=== PATIENT | female | born 1995 | race Hispanic/Latino ===

== ENCOUNTER 2020-04-14 07:38 | Emergency (ER) | payer OTHER ==
[~2020-04-14] VITALS: Ht 165.1 cm; Wt 60.2 kg
[2020-04-14] MEDS ORDERED: NEXP1IMP SC (07:50)
[2020-04-14 08:39] LABS: BASO % 0.5 % (0.0-1.0); EOS # 0.1 10^3/uL (0.0-0.5); EOS % 1.6 % (0.0-3.0); HEMATOCRIT 35.6 % (36.0-47.0); HEMOGLOBIN 12.2 g/dl (12.0-15.5); LYMPH # 3.3 10^3/uL (1.5-5.0); LYMPH % 52.4 % (24.0-44.0); MEAN CORPUSCULAR HEMOGLOBIN 30.1 pg (27.0-33.0); MEAN CORPUSCULAR HGB CONC 34.3 g/dl (32.0-36.5); MEAN CORPUSCULAR VOLUME 87.9 fl (80.0-96.0); MONO # 0.6 10^3/uL (0.0-0.8); MONO % 8.9 % (0.0-5.0); NEUTROPHILS # 2.3 10^3/uL (1.5-8.5); NEUTROPHILS % 36.4 % (36.0-66.0); PLATELET COUNT, AUTOMATED 226 10^3/uL (150-450); RED BLOOD COUNT 4.05 10^6/uL (4.00-5.40); WHITE BLOOD COUNT 6.2 10^3/uL (4.0-10.0)
[2020-04-14 09:11] LABS: ALBUMIN 4.2 GM/DL (3.2-5.2); BILIRUBIN,DIRECT 0.1 MG/DL (0.0-0.2); BILIRUBIN,TOTAL 0.3 MG/DL (0.2-1.0); TOTAL PROTEIN 7.2 GM/DL (6.4-8.2)
[2020-04-14 09:32] VITALS: BP 113/61
--- NOTE | 2020-04-14 10:11 | REP ---
PELVIC ULTRASOUND: Real-time sonographic evaluation of the pelvis performed. Transabdominal and endovaginal technique is utilized. The bladder is empty. The uterus measures 6.0 x 2.6 x 3.9 cm. Endometrial thickness is 4 mm. There is no endometrial fluid collection. Ovaries are normal in size and echotexture, right ovary measuring 3.1 x 1.3 x 3.6 cm and left ovary 2.6 x 1.8 x 1.9 cm. There is no adnexal mass. There is no evidence of ovarian torsion with duplex Doppler evaluation. There is trace free fluid in the pelvis, which is likely physiologic. IMPRESSION: Negative pelvic ultrasound. Electronically Signed by Yuan Joy MD 04/14/2020 12:55 P
[2020-04-14 10:26] LABS: CHLAMYDIA DNA AMPLIFICATION NEGATIVE (NEGATIVE); GC DNA AMPLIFICATION NEGATIVE (NEGATIVE)
== END 2020-04-14 09:59 | disposition home or self-care (01) ==
LOC: M ED 07:38
DX: N88.9 Noninflammatory disorder of cervix uteri, unspecified (principal); Z79.3 Long term (current) use of hormonal contraceptives

== ENCOUNTER 2021-04-18 15:27 | Emergency (ER) | payer OTHER ==
[~2021-04-18] VITALS: Ht 165.1 cm; Wt 58.8 kg
[~2021-04-18 15:27] MED LIST: NEXP1IMP SC
[2021-04-18] MEDS ORDERED: KETOROLAC 30 MG/ML 1ML VIAL IV ONE (18:45)
[2021-04-18] MEDS ORDERED: ONDANSETRON 4MG/2ML VIAL IV ONE (18:45)
[2021-04-18] MEDS ORDERED: ISOVUE-370 76% 100ML VIAL As Ordered ONE (20:39)
[2021-04-18 20:42] LABS: BASO % 0.4 % (0.0-1.0); EOS % 0.1 % (0.0-3.0); HEMATOCRIT 37.7 % (36.0-47.0); HEMOGLOBIN 12.5 g/dl (12.0-15.5); LYMPH # 1.9 10^3/uL (1.5-5.0); LYMPH % 23.6 % (24.0-44.0); MEAN CORPUSCULAR HEMOGLOBIN 29.1 pg (27.0-33.0); MEAN CORPUSCULAR HGB CONC 33.2 g/dl (32.0-36.5); MEAN CORPUSCULAR VOLUME 87.9 fl (80.0-96.0); MONO # 0.4 10^3/uL (0.0-0.8); MONO % 4.6 % (2.0-8.0); NEUTROPHILS # 5.7 10^3/uL (1.5-8.5); PLATELET COUNT, AUTOMATED 237 10^3/uL (150-450); RED BLOOD COUNT 4.29 10^6/uL (4.00-5.40)
[2021-04-18 21:07] LABS: ALBUMIN 4.2 GM/DL (3.2-5.2); ALT/SGPT 18 U/L (12-78); BILIRUBIN,DIRECT 0.2 MG/DL (0.0-0.2); BILIRUBIN,TOTAL 0.6 MG/DL (0.2-1.0); LIPASE 72 U/L (73-393); TOTAL PROTEIN 7.5 GM/DL (6.4-8.2)
[2021-04-18 21:35] LABS: BLOOD UREA NITROGEN 10 MG/DL (7-18); CALCIUM LEVEL 9.7 MG/DL (8.5-10.1); CARBON DIOXIDE LEVEL 26 MEQ/L (21-32); CHLORIDE LEVEL 106 MEQ/L (98-107); CREATININE FOR GFR 0.65 MG/DL (0.55-1.30); GLOMERULAR FILTRATION RATE > 60.0 (>60); GLUCOSE, FASTING 85 MG/DL (70-100); POTASSIUM SERUM 4.3 MEQ/L (3.5-5.1); SODIUM LEVEL 140 MEQ/L (136-145)
[2021-04-18 21:36] LABS: HCG, SERUM QUALITATIVE NEGATIVE (NEGATIVE)
--- NOTE | 2021-04-18 22:31 | REPVR ---
PROCEDURE INFORMATION: Exam: CT Abdomen And Pelvis With Contrast Exam date and time: 04/18/2021 9:52 PM Age: 25 years old Clinical indication: Abdominal pain; Periumbilical; Prior surgery; Surgery date: 6+ months; Additional info: Periumbilic pain TECHNIQUE: Imaging protocol: Computed tomography of the abdomen and pelvis with contrast. Radiation optimization: All CT scans at this facility use at least one of these dose optimization techniques: automated exposure control; mA and/or kV adjustment per patient size (includes targeted exams where dose is matched to clinical indication); or iterative reconstruction. Contrast material: ISOVUE 370; Contrast volume: 100 ml; Contrast route: INTRAVENOUS (IV); COMPARISON: US PELVIC NON-OB COMPLETE 04/14/2020 8:44 AM FINDINGS: Liver: Normal. No mass. Gallbladder and bile ducts: Status post cholecystectomy. Pancreas: Normal. No ductal dilation. Spleen: Normal. No splenomegaly. Adrenal glands: Normal. No mass. Kidneys and ureters: Normal. No hydronephrosis. Stomach and bowel: Sutures at the cecal tip consistent with prior appendectomy. Mild stool throughout much of the colon. Appendix: No evidence of appendicitis. Intraperitoneal space: Minimal free fluid in the cul-de-sac with a Hounsfield measurement of 6 which is likely physiologic. Vasculature: Unremarkable. No abdominal aortic aneurysm. Lymph nodes: Unremarkable. No enlarged lymph nodes. Urinary bladder: Unremarkable as visualized. Reproductive: Bilateral adnexal and myometrial venous varicosities, left greater than right with enlarged left gonadal vein measuring 8 mm. Bones/joints: Unremarkable. No acute fracture. Soft tissues: Unremarkable. IMPRESSION: 1. Status post cholecystectomy and appendectomy. 2. Otherwise negative CT abdomen/pelvis. Electronically signed by: Pierre Mix On 04/18/2021 22:31:15 PM
[2021-04-18] MEDS ORDERED: PANT40TA29 PO (23:36)
[2021-04-19 00:07] VITALS: BP 132/70
== END 2021-04-19 00:09 | disposition home or self-care (01) ==
LOC: M ED 15:27
DX: K21.9 Gastro-esophageal reflux disease without esophagitis (principal); Z87.442 Personal history of urinary calculi; Z79.3 Long term (current) use of hormonal contraceptives; Z79.899 Other long term (current) drug therapy
CPT/HCPCS: 74177; 80048; 80076; 81001; 83690; 84703; 85025; 96374; 96375; 99284; J1885; J2405; Q9967

== ENCOUNTER → 2021-08-12 | Outpatient (CLI) | payer OTHER ==
[~2021-08-12] MED LIST changes: +E-Z-PAQUE 96% w/w SUSP 176GM BTL As Ordered ONE; +PANT40TA29 PO
--- NOTE | 2021-08-12 16:55 | REP ---
INDICATION: CHANGE IN BOWEL HABIT-LAB 1ST. COMPARISON: None TECHNIQUE: This procedure was performed by Rose Sandoval, [facility], under the direct supervision of Dr. Delgado. Images were reviewed with Dr. Delgado prior to dictation. Liquid barium was administered and the barium column was followed through the small bowel to the level of the terminal ileum. FINDINGS: The work study student film shows no organomegaly or pathological masses. The intestinal gas pattern is unremarkable. Small bowel transit time is approximately 20 minutes. During fluoroscopy gentle palpation shows all loops are freely movable and pliable. There is no fixed angulated loops. The small bowel mucosal pattern is normal in course and caliber. There is no transition to suggest a partial small bowel obstruction. Spot filming of the terminal ileum shows it to be unremarkable. IMPRESSION: Small bowel transit time of approximately 20 minutes. 0.1 minutes of fluoroscopy time was utilized for this procedure. Some fluoroscopic images are performed with last image hold technology. These images require no additional radiation. <Electronically signed by Rose Sandoval > 08/12/21 1623 <Electronically signed by Ke Delgado > 08/12/21 1651
== END ==
LOC: M RAD 09:44
PROVIDERS: ATTEND Physician Assistant Medical
DX: R19.4 Change in bowel habit (principal)

== ENCOUNTER → 2021-09-09 | Outpatient (CLI) | payer OTHER ==
[~2021-09-09] MED LIST changes: -E-Z-PAQUE 96% w/w SUSP 176GM BTL As Ordered ONE
[2021-09-09 12:08] LABS: BASO % 0.6 % (0.0-1.0); EOS # 0.1 10^3/uL (0.0-0.5); EOS % 1.1 % (0.0-3.0); HEMATOCRIT 38.7 % (36.0-47.0); HEMOGLOBIN 12.8 g/dl (12.0-15.5); LYMPH # 3.2 10^3/uL (1.5-5.0); LYMPH % 49.8 % (24.0-44.0); MEAN CORPUSCULAR HEMOGLOBIN 29.5 pg (27.0-33.0); MEAN CORPUSCULAR HGB CONC 33.1 g/dl (32.0-36.5); MEAN CORPUSCULAR VOLUME 89.2 fl (80.0-96.0); MONO # 0.5 10^3/uL (0.0-0.8); MONO % 8.1 % (2.0-8.0); NEUTROPHILS # 2.6 10^3/uL (1.5-8.5); NEUTROPHILS % 40.2 % (36.0-66.0); PLATELET COUNT, AUTOMATED 232 10^3/uL (150-450); RED BLOOD COUNT 4.34 10^6/uL (4.00-5.40); WHITE BLOOD COUNT 6.5 10^3/uL (4.0-10.0)
[2021-09-09 12:43] LABS: ALBUMIN 4.5 GM/DL (3.2-5.2); ALT/SGPT 20 U/L (12-78); BILIRUBIN,TOTAL 0.9 MG/DL (0.2-1.0); BLOOD UREA NITROGEN 17 MG/DL (7-18); CARBON DIOXIDE LEVEL 25 MEQ/L (21-32); CHLORIDE LEVEL 104 MEQ/L (98-107); CREATININE FOR GFR 0.87 MG/DL (0.55-1.30); FREE T4 1.49 NG/DL (0.76-1.46); GLOMERULAR FILTRATION RATE > 60.0 (>60); GLUCOSE, FASTING 86 MG/DL (70-100); POTASSIUM SERUM 3.9 MEQ/L (3.5-5.1); SODIUM LEVEL 137 MEQ/L (136-145); TOTAL PROTEIN 7.6 GM/DL (6.4-8.2)
== END ==
LOC: M LAB 10:42
PROVIDERS: ATTEND Physician Assistant Medical
DX: R19.4 Change in bowel habit (principal)

== ENCOUNTER 2021-09-16 11:08 | Day surgery (SDC) | payer OTHER ==
[~2021-09-16] VITALS: Ht 165.1 cm; Wt 54.9 kg
[~2021-09-16 11:08] MED LIST changes: +NS 1,000 ML IV ONE
[2021-09-16] MEDS ORDERED: fentaNYL 100 MCG/2 ML INJECTION (J3010) As Ordered ONE (12:43)
[2021-09-16] MEDS ORDERED: LIDOCAINE 2% 100MG/5ML SDV (FOR ANES.) As Ordered ONE (12:43)
[2021-09-16] MEDS ORDERED: propofoL 200 MG/20 ML VIAL As Ordered ONE ×2 (12:43→13:36)
[2021-09-16] MEDS ORDERED: ePHEDrine SULFATE 25 MG/5 ML(5MG/ML) SYRINGE As Ordered ONE (13:37)
--- NOTE | 2021-09-16 14:09 | ROOR ---
Patient Name: Nicole Martinez Procedure Date: 09/16/2021 1:11 PM Date of : 1995 Age: 26 Room: [facility] Gender: Female Note Status: Finalized Procedure: Upper GI endoscopy Indications: Dyspepsia, Heartburn, Weight loss Providers: Ryland Feldman MD Referring MD: JAMES RAMIREZ MD Requesting Provider: Medicines: Monitored Anesthesia Care Complications: No immediate complications. Procedure: Pre-Anesthesia Assessment: - Prior to the procedure, a History and Physical was performed, and patient medications and allergies were reviewed. The patient is competent. The risks and benefits of the procedure and the sedation options and risks were discussed with the patient. All questions were answered and informed consent was obtained. Patient identification and proposed procedure were verified by the physician, the nurse and the anesthesiologist in the procedure room. Mental Status Examination: alert and oriented. Airway Examination: normal oropharyngeal airway and neck mobility. Respiratory Examination: clear to auscultation. CV Examination: normal. Prophylactic Antibiotics: The patient does not require prophylactic antibiotics. Prior Anticoagulants: The patient has taken no previous anticoagulant or antiplatelet agents. ASA Grade Assessment: II - A patient with mild systemic disease. After reviewing the risks and benefits, the patient was deemed in satisfactory condition to undergo the procedure. The anesthesia plan was to use monitored anesthesia care (MAC). Immediately prior to administration of medications, the patient was re-assessed for adequacy to receive sedatives. The heart rate, respiratory rate, oxygen saturations, blood pressure, adequacy of pulmonary ventilation, and response to care were monitored throughout the procedure. The physical status of the patient was re-assessed after the procedure. The Endoscope was introduced through the mouth, and advanced to the second part of duodenum. The upper GI endoscopy was accomplished without difficulty. The patient tolerated the procedure well. Findings: The examined esophagus was normal. The Z-line was regular and was found 40 cm from the incisors. Scattered mild inflammation characterized by congestion (edema), erythema and granularity was found in the gastric body and in the gastric antrum. Biopsies were taken with a cold forceps for Helicobacter pylori testing. Verification of patient identification for the specimen was done by the physician and nurse using the patient's name, date and medical record number. Estimated blood loss was minimal. The duodenal bulb, second portion of the duodenum and third portion of the duodenum were normal. Biopsies for histology were taken with a cold forceps for evaluation of celiac disease. Impression: - Normal esophagus. - Z-line regular, 40 cm from the incisors. - Gastritis. Biopsied. - Normal duodenal bulb, second portion of the duodenum and third portion of the duodenum. Biopsied. Recommendation: - Patient has a contact number available for emergencies. The signs and symptoms of potential delayed complications were discussed with the patient. Return to normal activities tomorrow. Written discharge instructions were provided to the patient. - High fiber diet. - Continue present medications. - Await pathology results. - Follow an antireflux regimen. - Return to GI clinic in [facility] (address: [address] [place] [address], [address] [place] [address], [place], [place],[address]) in 4 -- 6 weeks. Please call GI clinic @ [phone] for apppointment date and time. - Return to primary care physician. - Telephone GI clinic for pathology results in 2 weeks. Procedure Code(s): --- Professional --- 24687, Esophagogastroduodenoscopy, flexible, transoral; with biopsy, single or multiple Diagnosis Code(s): --- Professional --- K29.70, Gastritis, unspecified, without bleeding R10.13, Epigastric pain R12, Heartburn R63.4, Abnormal weight loss CPT copyright 2019 [employer]. All rights reserved. The codes documented in this report are preliminary and upon information coder review may be revised to meet current compliance requirements. Ryland Feldman MD Ryland Feldman MD 09/16/2021 2:09:23 PM Electronically signed by Ryland Feldman MD Number of Addenda: 0 Note Initiated On: 09/16/2021 1:11 PM Estimated Blood Loss: Estimated blood loss was minimal.
--- NOTE | 2021-09-16 14:13 | ROOR ---
Patient Name: Nicole Martinez Procedure Date: 09/16/2021 1:12 PM Date of : 1995 Age: 26 Room: [facility] Gender: Female Note Status: Finalized Procedure: Colonoscopy Indications: Chronic diarrhea, Weight loss Providers: Ryland Feldman MD Referring MD: JAMES RAMIREZ MD Requesting Provider: Medicines: Monitored Anesthesia Care Complications: No immediate complications. Procedure: Pre-Anesthesia Assessment: - Prior to the procedure, a History and Physical was performed, and patient medications and allergies were reviewed. The patient is competent. The risks and benefits of the procedure and the sedation options and risks were discussed with the patient. All questions were answered and informed consent was obtained. Patient identification and proposed procedure were verified by the physician, the nurse and the anesthesiologist in the procedure room. Mental Status Examination: alert and oriented. Airway Examination: normal oropharyngeal airway and neck mobility. Respiratory Examination: clear to auscultation. CV Examination: normal. Prophylactic Antibiotics: The patient does not require prophylactic antibiotics. Prior Anticoagulants: The patient has taken no previous anticoagulant or antiplatelet agents. ASA Grade Assessment: II - A patient with mild systemic disease. After reviewing the risks and benefits, the patient was deemed in satisfactory condition to undergo the procedure. The anesthesia plan was to use monitored anesthesia care (MAC). Immediately prior to administration of medications, the patient was re-assessed for adequacy to receive sedatives. The heart rate, respiratory rate, oxygen saturations, blood pressure, adequacy of pulmonary ventilation, and response to care were monitored throughout the procedure. The physical status of the patient was re-assessed after the procedure. The Colonoscope was introduced through the anus and advanced to the terminal ileum, with identification of the appendiceal orifice and IC valve. The colonoscopy was performed without difficulty. The patient tolerated the procedure well. The quality of the bowel preparation was good. The terminal ileum, ileocecal valve, appendiceal orifice, and rectum were photographed. Scope insertion time was 2 minutes. Scope withdrawal time was 9 minutes. The total duration of the procedure was 12 minutes. Findings: The perianal and digital rectal examinations were normal. The terminal ileum appeared normal. Normal mucosa was found in the entire colon. Biopsies for histology were taken with a cold forceps from the right colon, left colon and rectosigmoid colon for evaluation of microscopic colitis. Verification of patient identification for the specimen was done by the physician and nurse using the patient's name, date and medical record number. Estimated blood loss was minimal. Non-bleeding external and internal hemorrhoids were found during retroflexion. The hemorrhoids were medium-sized. No other significant abnormalities were identified in a careful examination of the remainder of the colon. Impression: - The examined portion of the ileum was normal. - Normal mucosa in the entire examined colon. Biopsied. - Non-bleeding external and internal hemorrhoids. Recommendation: - Patient has a contact number available for emergencies. The signs and symptoms of potential delayed complications were discussed with the patient. Return to normal activities tomorrow. Written discharge instructions were provided to the patient. - High fiber diet. - Use fiber, for example Citrucel, Fibercon, Konsyl or Metamucil. - Continue present medications. - Await pathology results. - Repeat colonoscopy at age 52 for screening purposes. - Telephone GI clinic for pathology results in 2 weeks. - Return to GI clinic in [facility] (address: [address] [place] [address], [place], [place],[facility]) in 4 -- 6 weeks. Please call GI clinic @ [phone] for apppointment date and time. Procedure Code(s): --- Professional --- 54266, Colonoscopy, flexible; with biopsy, single or multiple Diagnosis Code(s): --- Professional --- K64.8, Other hemorrhoids K52.9, Noninfective gastroenteritis and colitis, unspecified R63.4, Abnormal weight loss CPT copyright 2019 [employer]. All rights reserved. The codes documented in this report are preliminary and upon it instructor review may be revised to meet current compliance requirements. Ryland Feldman MD Ryland Feldman MD 09/16/2021 2:13:01 PM Electronically signed by Ryland Feldman MD Number of Addenda: 0 Note Initiated On: 09/16/2021 1:12 PM Estimated Blood Loss: Estimated blood loss was minimal.
[2021-09-16 14:30] VITALS: BP 103/61
== END 2021-09-16 14:34 | disposition home or self-care (01) ==
LOC: M OPP 11:08
PROVIDERS: ATTEND Internal Medicine Gastroenterology
DX: K29.70 Gastritis, unspecified, without bleeding (principal); R89.7 Abnormal histological findings in specimens from other organs, systems and tissues; R10.13 Epigastric pain; R12 Heartburn; R63.4 Abnormal weight loss; K64.8 Other hemorrhoids
CPT/HCPCS: 43239; 45380; 88305; J3010

== ENCOUNTER 2021-10-13 23:44 | Emergency (ER) | payer OTHER ==
[~2021-10-13] VITALS: Ht 165.1 cm; Wt 55.1 kg
[~2021-10-13 23:44] MED LIST changes: -NS 1,000 ML IV ONE
--- OUTSIDE RECORDS SUMMARY | 2021-10-13 23:53 | CCD | Continuity of Care Document ---
Author Author Nicole JIMENES [facility] Organization Unknown Address [address], [address] [place] [address] Phone [phone] Care Team Providers [employer] Name Role Phone Gregg Aggarwal D.O. Unavailable Problems Description No Active Problems Social History Type Date Description Comments Sex Unknown ETOH Use Rarely 2-3 times per ye ar Tobacco Use Start: Unknown Non Smoker Recreational Drug Use Regularly uses Marijuana ~ twice weekly Allergies and adverse reactions Description No Known Drug Allergies Medications Active Medications SIG Qnty Indications Ordering Provide r Date Nexplanon 68mg Implant Unknown Pantoprazole Sodium 40mg Tablets DR Daily Unknown History Medications Suprep Bowel Prep Kit 17.5-3.13-1.6GM/177ML Solution take per doctor's bowel prep instructions. 354ml Brad Encinas MD 08/01/2021 - 09/29/[address] take 4 tabs by mouth prior to procedure per instructions. 4tabs Brad Encinas MD 08/01/2021 - 09/29/2021 Immunizations Description No Information Available Vital Signs Date Vital Result Comment 09/30/2021 10:16am BP Systolic 104 mmHg BP Diastolic 62 mmHg Height 65 inches 5'5" Weight 125.00 lb BMI (Body Mass Index) 20.8 kg/m2 [place] Body Weight 125 lb Weight 56.700 kg BSA (Body Surface Area) 1.62 m2 07/13/2021 1:54pm BP Systolic 112 mmHg BP Diastolic 78 mmHg Height 65 inches 5'5" Weight 122.00 lb BMI (Body Mass Index) 20.3 kg/m2 [place] Body Weight 125 lb Weight 55.339 kg BSA (Body Surface Area) 1.60 m2 Results Test Acquired Date Facility Test Result H/L Range Note Laboratory test finding 09/16/2021 [facility] [address] [place] [address] [phone] Pathology Request For Service (SEE NOTE) 1 CBC With Differential 09/09/2021 [facility] [address] [place] [address] [phone] White Blood Count 6.5 10 Normal 4.0-10.0 Red Blood Count 4.34 10 Normal 4.00-5.40 Hemoglobin 12.8 g/dL Normal 12.0-15.5 Hematocrit 38.7 % Normal 36.0-47.0 Mean Corpuscular Volume 89.2 fl Normal 80.0-96.0 Mean Corpuscular Hemoglobin 29.5 pg Normal 27.0-33.0 Mean Corpuscular HGB Conc 33.1 g/dL Normal 32.0-36.5 Red Cell Distribution Width 12.7 % Normal 11.5-14.5 Platelet Count, Automated 232 10 Normal 150-450 Neutrophils % 40.2 % Normal 36.0-66.0 Lymph % 49.8 % High 24.0-44.0 Monroe % 8.1 % High 2.0-8.0 Eos % 1.1 % Normal 0.0-3.0 Baso % 0.6 % Normal 0.0-1.0 Immature Granulocyte % 0.2 % Normal 0-3.0 Nucleated Red Blood Cell % 0.0 % Normal 0-0 Neutrophils # 2.6 10 Normal 1.5-8.5 Lymph # 3.2 10 Normal 1.5-5.0 Monroe # 0.5 10 Normal 0.0-0.8 Eos # 0.1 10 Normal 0.0-0.5 Baso # 0.0 10 Normal 0.0-0.2 Comprehensive Metabolic Profil 09/09/2021 [facility] Lab [address] [place] [address] [phone] Glucose, Fasting 86 mg/dL Normal 70-100 Blood Urea Nitrogen 17 mg/dL Normal 7-18 Creatinine For GFR 0.87 mg/dL Normal 0.55-1.30 Glomerular Filtration Rate > 60.0 Normal >60 2 Sodium Level 137 mEq/L Normal 136-145 Potassium Serum 3.9 mEq/L Normal 3.5-5.1 Chloride Level 104 mEq/L Normal 98-107 Carbon Dioxide Level 25 mEq/L Normal 21-32 Anion Gap 8 mEq/L Normal 8-16 Calcium Level 10.0 mg/dL Normal 8.5-10.1 Ast/Sgot 15 U/L Normal 7-37 Alt/SGPT 20 U/L Normal 12-78 Alkaline Phosphatase 51 U/L Normal 45-117 Bilirubin,Total 0.9 mg/dL Normal 0.2-1.0 Total Protein 7.6 GM/DL Normal 6.4-8.2 Albumin 4.5 GM/DL Normal 3.2-5.2 Albumin/Globulin Ratio 1.5 Normal 1.2-2.2 Laboratory test finding 09/09/2021 [facility] [address] [place] [address] [phone] Tissue Transglutaminase IgA <2 U/mL Normal 0-3 3 Immunoglobulin A 134.0 mg/dL Normal 70-400 FT4&TSH Panel 09/09/2021 [facility] [address] [place] [address] [phone] Thyroid Stimulating Hormone 1.740 uIU/ML Normal 0. 358-3.740 Free T4 1.49 ng/dL High 0.76-1.46 Gastrointestinal (GI) Panel 08/12/2021 [facility] Main Lab [address] [place] [address] [phone] Gastrointestinal (GI) Panel This Gastrointes <SEE NOTE > 4, 5 Laboratory test finding 08/12/2021 [facility] [address] [place] [address] [phone] Calprotectin Stool <16 ug/g Normal 0-120 6, 7 1 FINAL DIAGNOSIS A - Small bowel, biopsy: Fragments of small intestinal mucosa with some intact villi. No typical features of celiac disease are noted. B - Gastric biopsy: Gastric mucosa with mils chronic inflammation. Rare H. pylori-like organisms are noted on routine H&E stain and to a lesser extent on immunostain, correlation with endoscopic findings is recommended. C - Colon, random biopsy: Fragments of benign colonic mucosa, without significant inflammatory changes. No evidence for microscopic colitis is noted. 09/21/2021 - 801 CLINICAL DIAGNOSIS Abdominal pain, weight loss, heartburn, change in bowel habits 09/19/2021 - 1338 GROSS DIAGNOSIS A - Received in formalin labeled "small bowel biopsy" is a 0.3 x 0.3 x 0.2 cm. aggregate of mucosal fragments. All in one. B - Received in formalin labeled "gastric biopsy" is a 0.3 x 0.2 x 0.2 cm. portion of mucosa. All in one. C - Received in formalin labeled "random colon biopsy" is a 0.8 x 0.8 x 0.2 cm. aggregate of mucosal fragments. All in one. - 09/20/2021 - 0856 Signed Carmelo Villanueva MD 09/21/2021801 2 Units are mL/min/1.73 m2 Chronic Kidney Disease Staging per NKF: Stage I & II GFR >=60 Normal to Mildly Decreased Stage III GFR 30-59 Moderately Decreased Stage IV GFR 15-29 Severely Decreased Stage V GFR <15 Very Little GFR Left ESRD GFR <15 on LABOR CUSTODIAN 3 Negative 0 - 3 Weak Positive 4 - 10 Positive >10 . Tissue Transglutaminase (tTG) has been identified as the endomysial antigen. Studies have demonstr- ated that endomysial IgA antibodies have over 99% specificity for gluten sensitive enteropathy. Performed at: [facility] [id number] [employer] Communications Operator: Vilma León MD, Phone: [phone] This Gastrointestinal PCR Pa axel detects the following bacteria, parasites and viruses: Campylobacter (jejuni, coli and upsaliensis), Clostridium difficile (toxin A/B), Plesiomonas shigelloides, Salmonella, Yersinia enterocolitica, Vibrio (parahaemolyticus, vulnificus and cholerae), Vibrio clolerae, Enteroaggregative E. coli (EAEC), Enteropathogenis E. coli (EPEC), Enterotoxigenic E. coli (ETEC) it/st, Shiga-like producing E. coli (STEC) stx1/stc2, E.coli O157, Shigella/Enteroinvasive E. coli (EIEC), Cryptosporidium, Cyclospora cayetanensis, Entamoeba histolytica, Giardia lamblia, Adenovirus F 40/41, Astrovirus, Norovirus GI/GII, Rotavirus A and Sapovirus (I, II, IV, V). One negative specimen does not rule out the possibility of a parasitic infection. NEGATIVE by MULTIPLEXED NUCLEIC ACID PCR 5 08/16/21 (SunAug 16) 12:14 P M CYNDEE JIMENES Negative. 6 Concentration Interpreta tion Follow-Up <16 - 50 ug/g Normal None >50 -120 ug/g Borderline Re-evaluate in 4-6 weeks >120 ug/g Abnormal Repeat as clinically indicated Performed at: [facility] [address] [id number] [employer] Operator: Omar Romo MD, Phone: [phone] 08/16/21 (SunAug 16) 12:14 P M CYNDEE JIMENES Normal. Procedures Date Code Description Status 07/13/2021 [address]98[address] Office/Outpatient New Moderate M DM 45-59 Minutes Completed Medical Devices Description No Information Available Encounters Type Date Location Provider Dx Diagnosis Office Visit 07/13/2021 2:00p [facility] Gastroenterology Pra ctice Cyndee Jimenes, [facility] R10.10 Upper abdominal pain, unspec ified R10.31 Right lower quadrant pain R12 Heartburn R19.4 Change in bowel habit R14.0 Abdominal distension (gaseou s) R63.4 Abnormal weight loss Assessments Date Code Description Provider 09/30/2021 B96.81 Helicobacter pylori [H. pylori] as the cause of diseases classified elsewhere Cyndee Jimenes, [facility] 09/30/2021 R10.10 Upper abdominal pain, unspecifie d Cyndee Jimenes, [facility] 09/30/2021 R19.8 Other specified symp toms and signs involving the digestive system and abdomen Cyndee Jimenes, [facility] 09/30/2021 R63.4 Abnormal weight loss Cyndee garcias, [facility] 07/13/2021 R10.10 Upper abdominal pain, unspecifie d Cyndee Jimenes, [facility] 07/13/2021 R10.31 Right lower quadrant pain Meliss malorie Jimenes, [facility] 07/13/2021 R12 Heartburn Cyndee tobias, [facility] 07/13/2021 R19.4 Change in bowel habit Cyndee Jimenes, [facility] 07/13/2021 R14.0 Abdominal distension (gaseous) Rasheeda Lee Matyjenniferbroderick, [facility] 07/13/2021 R63.4 Abnormal weight loss Cyndeejoyce Yuan trielainebroderick, [facility] Plan of Treatment 09/30/2021 - Cyndee Fentonbroderick, [facility]* B96.81 Helicobacter pylori [H. pylori] as the cause of diseases classified elsewhere * R10.10 Upper abdominal pain, unspecified * R19.8 Other specified symptoms and signs involving the digestive system and abdomen * R63.4 Abnormal weight loss * * Follow up:* Call patient in 2 weeks. Functional Status Description No Information Available Mental Status Description No Information Available Referrals Refer to Reason for Referral Status Appt Date Ryland Feldman M.D. GERD 1 NEW 04/30 TO 10/27 3 EST TO 04/30/22 Scheduled 07/14/2021 [facility] [address], [place] [address] [phone]
--- OUTSIDE RECORDS SUMMARY | 2021-10-13 23:53 | CCD | Continuity of Care Document ---
Author Author Nicole COLEY MD Organization Unknown Address [address] [place] [address] Phone [phone] Care Team Providers Care Teller Supervisor Name Role Phone Gregg Aggarwal D.O. Unavailable Problems Description No Active Problems Social History Type Date Description Comments Sex Unknown ETOH Use Rarely 2-3 times per ye ar Tobacco Use Start: Unknown Non Smoker Recreational Drug Use Regularly uses Marijuana ~ twice weekly Allergies and adverse reactions Description No Known Drug Allergies Medications Active Medications SIG Qnty Indications Ordering Provide r Date Suprep Bowel Prep Kit 17.5-3.13-1.6GM/177ML Solution take per doctor's bowel prep instructions. 354ml Brad Coley MD 08/01/[address] take 4 tabs by mouth prior to procedure per instructions. 4tabs Brad Coley MD 08/01/2021 Nexplanon 68mg Implant Unknown Pantoprazole Sodium 40mg Tablets DR Daily Unknown Immunizations Description No Information Available Vital Signs Date Vital Result Comment 07/13/2021 1:54pm BP Systolic 112 mmHg BP Diastolic 78 mmHg Height 65 inches 5'5" Weight 122.00 lb BMI (Body Mass Index) 20.3 kg/m2 [place] Body Weight 125 lb Weight 55.339 kg BSA (Body Surface Area) 1.60 m2 Results Test Acquired Date Facility Test Result H/L Range Note Gastrointestinal (GI) Panel 08/12/2021 [facility] Main [facility] [address], [place] [id number] [phone] Gastrointestinal (GI) Panel This Gastrointes <SEE NOTE > 1, 2 Laboratory test finding 08/12/2021 [facility] Main Lab [address] [place] [address] [phone] Calprotectin Stool <16 ug/g Normal 0-120 3, 4 1 This Gastrointestinal PCR Pa axel detects the [...] infection. NEGATIVE by MULTIPLEXED NUCLEIC ACID PCR 2 08/16/21 (SunAug 16) 12:14 P M CYNDEE JIMENES Negative. 3 Concentration Interpreta tion Follow-Up <16 - 50 ug/g Normal None >50 -120 ug/g Borderline Re-evaluate in 4-6 weeks >120 ug/g Abnormal Repeat as clinically indicated Performed at: [address] [id number] [employer] Project Coordinator: Omar Romo MD, Phone: [phone] 08/16/21 (SunAug 16) 12:14 P M CYNDEE JIMENES Normal. Procedures Date Code Description Status 07/13/2021 76145 Office/Outpatient New Moderate M DM 45-59 Minutes Completed Medical Devices Description No Information Available Encounters Type Date Location Provider Dx Diagnosis Office Visit 07/13/2021 2:00p [facility] [place] [facility] Cyndee Jimenes, RPA-C R10.10 Upper abdominal pain, unspec ified R10.31 Right lower quadrant pain R12 Heartburn R19.4 Change in bowel habit R14.0 Abdominal distension (gaseou s) R63.4 Abnormal weight loss Assessments Date Code Description Provider 07/13/2021 R10.10 Upper abdominal pain, unspecifie d Cyndee Lee WARNER Jimenes 07/13/2021 R10.31 Right lower quadrant pain Sander Lee MatysadiqWARNER tobias 07/13/2021 R12 Heartburn Cyndee otbiasWARNER 07/13/2021 R19.4 Change in bowel habit Cyndee Lee Juan FelaineWARNER villafana 07/13/2021 R14.0 Abdominal distension (gaseous) M fabiola Lee WARNER Jimenes 07/13/2021 R63.4 Abnormal weight loss Cyndee A WARNER Parson Plan of Treatment Future Appointment(s):* 09/15/2021 9:30 am - WARNER Harper at [facility] [place] [facility] * 08/30/2021 11:10 am - Ryland Feldman M.D. at [facility] 07/13/2021 - Cyndee Jesus WARNER Jimenes* R10.10 Upper abdominal pain, unspecified * R10.31 Right lower quadrant pain * R12 Heartburn * R19.4 Change in bowel habit * R14.0 Abdominal distension (gaseous) * R63.4 Abnormal weight loss * * New Orders:* Endoscopy, Ordered: 07/13/21 * Colonoscopy, Ordered: 07/13/21 * Comments:* Will arrange for upper endoscopy and colonoscopy. Reviewed risks and benefits of the procedures, as well as other options, with the patient. Prep for this procedure was discussed with patient, including risks and side effects associated with the prep. Patient verbalized understanding of all of the above and is in agreement to proceed. Patient will seek medical attention for any acute changes. Will monitor. * Follow up:* 2 weeks after procedures, sooner if needed. Functional Status Description No Information Available Mental Status Description No Information Available Referrals Refer to Reason for Referral Status Appt Date Ryland Feldman M.D. GERD 1 NEW 04/30 TO 10/27 3 EST TO 04/30/22 Scheduled 07/14/2021 [facility] [address] [facility], [place] [id number] [phone]
--- OUTSIDE RECORDS SUMMARY | 2021-10-13 23:54 | CCD | Continuity of Care Document ---
Author Author Nicole JIMENES Organization Unknown Address [address] [facility], [address] [place] [address] Phone [phone] Care Team Providers Care Wild Life Manager Name Role Phone Gregg Aggarwal D.O. Unavailable Problems Description No Active Problems Social History Type Date Description Comments Sex Unknown ETOH Use Rarely 2-3 times per ye ar Tobacco Use Start: Unknown Non Smoker Recreational Drug Use Regularly uses Marijuana ~ twice weekly Allergies, Adverse Reactions, Alerts Description No Known Drug Allergies Medications Active Medications SIG Qnty Indications Ordering Provide r Date Nexplanon 68mg Implant Unknown Pantoprazole Sodium 40mg Tablets DR Daily Unknown Immunizations Description No Information Available Vital Signs Date Vital Result Comment 07/13/2021 1:54pm BP Systolic 112 mmHg BP Diastolic 78 mmHg Height 65 inches 5'5" Weight 122.00 lb BMI (Body Mass Index) 20.3 kg/m2 [place] Body Weight 125 lb Weight 55.339 kg BSA (Body Surface Area) 1.60 m2 Procedures Date Code Description Status 07/13/2021 19103 Office/Outpatient New Moderate M DM 45-59 Minutes Completed Medical Devices Description No Information Available Encounters Type Date Location Provider Dx Diagnosis Office Visit 07/13/2021 2:00p [facility]astro[facility] Pra ctice WARNER Harper R10.10 Upper abdominal pain, unspec ified R10.31 Right lower quadrant pain R12 Heartburn R19.4 Change in bowel habit R14.0 Abdominal distension (gaseou s) R63.4 Abnormal weight loss Assessments Date Code Description Provider 07/13/2021 R10.10 Upper abdominal pain, unspecifie d WARNER Harper 07/13/2021 R10.31 Right lower quadrant pain Meliss a A Charlejatinder, [facility] 07/13/2021 R12 Heartburn [facility]ick[facility] 07/13/2021 R19.4 Change in bowel habit Cyndee Jimenes, [facility] 07/13/2021 R14.0 Abdominal distension (gaseous) M fabiola Lee Jamari, [facility] 07/13/2021 R63.4 Abnormal weight loss Cyndee Yuan dieter, [facility] Plan of Treatment Future Appointment(s):* 08/30/2021 11:10 am - Ryland Feldman M.D. at [facility] 07/13/2021 - Cyndee Lee WARNER Jimenes* R10.10 Upper abdominal pain, unspecified [...] to Reason for Referral Status Appt Date Rylnad Feldman M.D. GERD 1 NEW 04/30 TO 10/27 3 EST TO 04/30/22 Scheduled 07/14/2021 [facility] [address] [facility], [address] [place] [address] [phone]
--- OUTSIDE RECORDS SUMMARY | 2021-10-13 23:54 | CCD ---
Author Author [facility] Organization [facility] Address Unknown Phone Unavailable Care Team Providers Care Dental Hygiene Instructor Name Role Phone Charlebois, A Cyndee RPA C Unavailable Unavailable Charlebois, A Cyndee RPA C Unavailable Unavailable Charlebois, A Cyndee RPA C Unavailable Unavailable Charlebois, A Cyndee RPA C Unavailable Unavailable Charlebois, A Cyndee RPA C Unavailable Unavailable Charlebois, A Cyndee RPA C Unavailable Unavailable Charlebois, A Cyndee RPA C Unavailable Unavailable Charlebois, A Cyndee RPA C Unavailable Unavailable Charlebois, A Cyndee RPA C Unavailable Unavailable Charlebois, A Cyndee RPA C Unavailable Unavailable Charlebois, A Cyndee RPA C Unavailable Unavailable Charlebois, A Cyndee RPA C Unavailable Unavailable Charlebois, A Cyndee RPA C Unavailable Unavailable Charlebois, A Cyndee RPA C Unavailable Unavailable Charlebois, A Cyndee RPA C Unavailable Unavailable Charlebois, A Cyndee RPA C Unavailable Unavailable Charlebois, A Cyndee RPA C Unavailable Unavailable Charlebois, A Cyndee RPA C Unavailable Unavailable Charlebois, A Cyndee RPA C Unavailable Unavailable Charlebois, A Cyndee RPA C Unavailable Unavailable Charlebois, A Cyndee RPA C Unavailable Unavailable Charlebois, A Cyndee RPA C Unavailable Unavailable Charlebois, A Cyndee RPA C Unavailable Unavailable Charlebois, A Cyndee RPA C Unavailable Unavailable Charlebois, A Cyndee RPA C Unavailable Unavailable Charlebois, A Cyndee RPA C Unavailable Unavailable Charlebois, A Cyndee RPA C Unavailable Unavailable Charlebois, A Cyndee RPA C Unavailable Unavailable Charlebois, A Cyndee RPA C Unavailable Unavailable Charlebois, A Cyndee RPA C Unavailable Unavailable Charlebois, A Cyndee RPA C Unavailable Unavailable Charlebois, A Cyndee RPA C Unavailable Unavailable Charlebois, A Cyndee RPA C Unavailable Unavailable Manning, M Christopher PA-C Unavailable Unavailable Manning, M Christopher PA-C Unavailable Unavailable Manning, M Christopher PA-C Unavailable Unavailable Manning, M Christopher PA-C Unavailable Unavailable Manning, M Christopher PA-C Unavailable Unavailable Manning, M Christopher PA-C Unavailable Unavailable Manning, M Christopher PA-C Unavailable Unavailable Manning, M Christopher PA-C Unavailable Unavailable Manning, M Christopher PA-C Unavailable Unavailable Manning, M Christopher PA-C Unavailable Unavailable Manning, M Christopher PA-C Unavailable Unavailable Manning, M Christopher PA-C Unavailable Unavailable Manning, M Christopher PA-C Unavailable Unavailable Manning, M Christopher PA-C Unavailable Unavailable Manning, M Christopher PA-C Unavailable Unavailable Manning, M Christopher PA-C Unavailable Unavailable Manning, M Christopher PA-C Unavailable Unavailable Manning, M Christopher PA-C Unavailable Unavailable Manning, M Christopher PA-C Unavailable Unavailable Manning, M Christopher PA-C Unavailable Unavailable Manning, M Christopher PA-C Unavailable Unavailable Manning, M Christopher PA-C Unavailable Unavailable Manning, M Christopher PA-C Unavailable Unavailable Manning, M Christopher PA-C Unavailable Unavailable Manning, M Christopher PA-C Unavailable Unavailable Manning, M Christopher PA-C Unavailable Unavailable Re-disclosure Warning The records that you are about to access may contain information from federally-assisted alcohol or drug abuse programs. If such information is present, then the following federally mandated warning applies: This information has been disclosed to you from records protected by federal confidentiality rules (42 CFR part 2). The federal rules prohibit you from making any further disclosure of this information unless further disclosure is expressly permitted by the written consent of the person to whom it pertains or as otherwise permitted by 42 CFR part 2. A general authorization for the release of medical or other information is NOT sufficient for this purpose. The Federal rules restrict any use of the information to criminally investigate or prosecute any alcohol or drug abuse patient.The records that you are about to access may contain highly sensitive health information, the redisclosure of which is protected by Article 27-F of the [facility] Public Health law. If you continue you may have access to information: Regarding HIV / AIDS; Provided by facilities licensed or operated by the [facility] Office of Mental Health; or Provided by the [facility] Office for People With Developmental Disabilities. If such information is present, then the following [facility] mandated warning applies: This information has been disclosed to you from confidential records which are protected by state law. State law prohibits you from making any further disclosure of this information without the specific written consent of the person to whom it pertains, or as otherwise permitted by law. Any unauthorized further disclosure in violation of state law may result in a fine or care home sentence or both. A general authorization for the release of medical or other information is NOT sufficient authorization for further disc losure. Encounters Encounter Providers Location Date Indications Data Source(s ) Outpatient Attender: Terrence Manning PA-C 08/26/2021 03:49:38 PM EDT - 08/26/2021 05:27:03 PM EDT Mariella ([facility]) Outpatient Attender: Cyndee Wells/Mirta/Jesus pringle/Huang 07/13/2021 02:00:00 PM EDT TANNA ([facility] arjun ) Immunizations Vaccine Date Status Description Data Source(s) COVID-19 VACCINE Moderna 04/12/2021 12:00:00 AM EDT completed [facility] Vaccine Series Complete: YESThis Data wa s Submitted to [facility] Via [employer]. COVID-19 VACCINE Moderna 03/15/2021 12:00:00 AM EDT completed [facility] Vaccine Series Complete: NOThis Data was Submitted to [facility] Via [employer]. Medications Medication Brand Name Start Date Product Form Dose Route Admi nistrative Instructions Pharmacy Instructions Status Indications Reaction Description Data Source(s) Suprep Bowel Prep Kit Suprep Bowel Prep Kit 08/01/2021 12:00:00 AM EDT completed [facility] ([facility], ) Bisacodyl 5 MG Delayed Release Oral Tablet [Dulcolax] Dulcol ax 08/01/2021 12:00:00 AM EDT ORAL completed [facility] ([facility], ) Insurance Providers Payer name Policy type / Coverage type Policy ID Covered democrat ID Covered democrat's relationship to braden Policy Braden Plan Information [facility] [id number] [facility] [id number] [employer]/ [id number] [facility] [id number] [facility] [id number] [facility] [id number] Problems, Conditions, and Diagnoses No Information Surgeries/Procedures Procedure Description Date Indications Data Source(s) OFFICE OUTPATIENT NEW 45 MINUTES 07/13/2021 12:00:00 A M EDT [facility] ([facility], ) Results ID Date Data Source [id number] 09/16/2021 01:53:00 PM EDT [facility] ([facility], ) Name Value Range Interpretation Code Description Data Anastasia rce(s) Supporting Document(s) Surgical pathology study Laboratory test result [facility] ([facility], ) <content>FINAL DIAGNOSIS</content>
< content></content>
<content>A - Small bowel, biopsy:</content>
<content>Fragments of small intestinal mucosa with some intact villi.</content>
<content>No typical features of celiac disease are noted.</content>
<content>B - Gastric biopsy:</content>
<content>Gastric mucosa with mils chronic inflammation.</content>
<content>Rare H. pylori-like organisms are noted on routine H&E stain and to a</content>
<content>lesser extent on immunostain, correlation with endoscopic findings is</content>
<content>recommended.</ content>
<content></content>
<content>C - Colon, random biopsy:</content>
<content>Fragments of benign colonic mucosa, without significant inflammatory</content>
<content>changes.</content>
<content> No evidence for microscopic colitis is noted.</content>
<content></content>
<content>09/21/2021 - 801</content>
<content></content>
<content>CLINICAL DIAGNOSIS</content>
<content></content>
<content>Abdominal pain, weight loss, heartburn, change in bowel habits</content>
<content>09/19/2021 - 1337</content>
<content></content>
<content>GROSS DIAGNOSIS</content>
<content></content>
<content>A - Received in formalin labeled "small bowel biopsy" is a 0.3 x 0.3 x</content>
<content>0.2 cm. aggregate of mucosal fragments. All in one.</content>
<content></content>
<content>B - Received in formalin labeled "gastric biopsy" is a 0.3 x 0.2 x 0.2</content>
<content>cm. portion of mucosa. All in one.</content>
<content></content>
<content>C - Received in formalin labeled "random colon biopsy" is a 0.8 x 0.8 x</content>
<content>0.2 cm. aggregate of mucosal fragments. All in one.</content>
<content>-SH</content>
<content>09/20/2021 - 0856</content>
<content></content>
<content>Signed Carmelo Villanueva MD 09/21/2021801</content>
<content></content> ID Date Data Source [id number] 09/09/2021 11:15:00 AM EDT [facility] ([facility], ) Name Value Range Interpretation Code Description Data Anastasia rce(s) Supporting Document(s) Thyroid Stimulating Hormone 1.740 uIU/ML 0.358-3.740 Norm al (applies to non- numeric results) [facility] ([facility]) Free T4 1.49 ng/dL 0.76-1.46 Above high normal [facility] ([facility]) ID Date Data Source [id number] 09/09/2021 11:15:00 AM EDT [facility] ([facility]) Name Value Range Interpretation Code Description Data Anastasia rce(s) Supporting Document(s) Tissue transglutaminase IgA Ab [Units/volume] in Serum Labor atory test result 0-3 Normal (applies to non-numeric results) [facility] ([facility]) Negative 0 - 3 Weak Positive 4 - 10 Positive >10 . Tissue Transglutaminase (tTG) has been identified as the endomysial antigen. Studies have demonstr- ated that endomysial IgA antibodies have over 99% specificity for gluten sensitive enteropathy. Performed at: RN - [facility] [address] [id number] Glass Frame Fitter: Vilma León MD, Phone: [phone] IgA [Mass/volume] in Serum or Plasma 134.0 mg/dL 70-400 Normal (applies to non- numeric results) [facility] ([facility]) ID Date Data Source [id number] 09/09/2021 11:15:00 AM EDT [facility]) Name Value Range Interpretation Code Description Data Anastasia rce(s) Supporting Document(s) Glucose, Fasting 86 mg/dL 70-100 Normal (applies to non-numeric results) [facility] ([facility]) Blood Urea Nitrogen 17 mg/dL 7-18 Normal (applies to non-nume paulina results) [facility] ([facility]) Glomerular Filtration Rate Laboratory test result Normal (applies to non- numeric results) [facility]) <content>Units are mL/min/1.73 m2</content>
<content></content>
<content>Chronic Kidney Disease Staging per NKF:</content>
<content></content>
<content>Stage I & II GFR >=60 Normal to Mildly Decreased</content>
<content>Stage III GFR 30- 59 Moderately Decreased</content>
<content>Stage IV GFR 15-29 Severely Decreased</content>
<content>Stage V GFR <15 Very Little GFR Left</content>
<content>ESRD GFR <15 on DAMPENER OPERATOR</content>
<content></content> Creatinine For GFR 0.87 mg/dL 0.55-1.30 Normal (applies to non -numeric results) [facility] ([facility], ) Sodium Level 137 meq/L 136-145 Normal (applies to non-numeric res ults) [facility], ) Potassium Serum 3.9 meq/L 3.5-5.1 Normal (applies to non-numeric results) [facility] ([facility], ) Chloride Level 104 meq/L 98-107 Normal (applies to non-numeric r esults) [facility] ([facility], ) Carbon Dioxide Level 25 meq/L 21-32 Normal (applies to non-num suleman results) [facility] ([facility], ) Anion Gap 8 meq/L 8-16 Normal (applies to non-numeric resul ts) [facility], ) Calcium Level 10.0 mg/dL 8.5-10.1 Normal (applies to non-numeric re sults) [facility], ) Ast/Sgot 15 U/L 7-37 Normal (applies to non-numeric resul ts) [facility] ([facility], ) Alt/SGPT 20 U/L 12-78 Normal (applies to non-numeric resul ts) [facility], ) Alkaline Phosphatase 51 U/L 45-117 Normal (applies to non-num suleman results) [facility], ) Bilirubin,Total 0.9 mg/dL 0.2-1.0 Normal (applies to non-numeric results) [facility], ) Total Protein 7.6 GM/DL 6.4-8.2 Normal (applies to non-numeric re sults) [facility]) Albumin 4.5 GM/DL 3.2-5.2 Normal (applies to non-numeric resul ts) [facility]) Albumin/Globulin Ratio 1.5 1.2-2.2 Normal (applies to non-n umeric results) [facility]) ID Date Data Source [id number] 09/09/2021 11:15:00 AM EDT [facility] ([facility]) Name Value Range Interpretation Code Description Data Anastasia rce(s) Supporting Document(s) White Blood Count 6.5 10 4.0-10.0 Normal (applies to non-numeri c results) [facility]) Red Blood Count 4.34 10 4.00-5.40 Normal (applies to non-numeric results) [facility] ([facility]) Hemoglobin 12.8 g/dL 12.0-15.5 Normal (applies to non-numeric resul ts) [facility]) Hematocrit 38.7 % 36.0-47.0 Normal (applies to non-numeric resul ts) [facility]) Mean Corpuscular Volume 89.2 fl 80.0-96.0 Normal ( applies to non-numeric results) [facility]) Mean Corpuscular Hemoglobin 29.5 pg 27.0-33.0 Norm al (applies to non-numeric results) [facility]) Red Cell Distribution Width 12.7 % 11.5-14.5 Norm al (applies to non-numeric results) [facility]) Mean Corpuscular HGB Conc 33.1 g/dL 32.0-36.5 Normal (applies to non-numeric results) [facility]) Platelet Count, Automated 232 10 150-450 Normal (applies to non-numeric results) [facility]) Neutrophils % 40.2 % 36.0-66.0 Normal (applies to non-numeric re sults) [facility]) Lymph % 49.8 % 24.0-44.0 Above high normal [facility] ([facility]) Charlton % 8.1 % 2.0-8.0 Above high normal [facility] ([facility]) Eos % 1.1 % 0.0-3.0 Normal (applies to non-numeric resul ts) [facility] ([facility]) Baso % 0.6 % 0.0-1.0 Normal (applies to non-numeric resul ts) [facility] ([facility]) Immature Granulocyte % 0.2 % 0-3.0 Normal (applies to non-n umeric results) [facility] ([facility]) Nucleated Red Blood Cell % 0.0 % 0-0 Normal (applies to n on-numeric results) [facility] ([facility]) Neutrophils # 2.6 10 1.5-8.5 Normal (applies to non-numeric re sults) [facility] ([facility]) Charlton # 0.5 10 0.0-0.8 Normal (applies to non-numeric resul ts) [facility] ([facility]) Lymph # 3.2 10 1.5-5.0 Normal (applies to non-numeric resul ts) [facility] ([facility]) Eos # 0.1 10 0.0-0.5 Normal (applies to non-numeric resul ts) [facility] ([facility]) Baso # 0.0 10 0.0-0.2 Normal (applies to non-numeric resul ts) [facility] ([facility]) ID Date Data Source [id number] 08/26/2021 05:30:00 PM EDT [facility] Name Value Range Interpretation Code Description Data Anastasia rce(s) Supporting Document(s) SARS-CoV-2 RNA Resp Ql CARMEN+probe NOT DETECTED [facility] This lab was ordered by AMEE wallace and reported by AMEE Fuller. ID Date Data Source [id number] 08/12/2021 11:30:00 AM EDT [facility]) Name Value Range Interpretation Code Description Data Anastasia rce(s) Supporting Document(s) Calprotectin [Mass/mass] in Stool Laboratory test result 0-120 Normal (applies to non-numeric results) [facility] ([facility], ) <content>Concentration Interpretatio n Follow-Up</content>
<content><16 - 50 ug/g Normal None</content>
<content>>50 -120 ug/g Borderline Re-evaluate in 4-6 weeks</content>
<content>>120 ug/g Abnormal Repeat as clinically</content>
<content>indicated</content>
<content>Performed at: [facility]</content>
<content>[address] [place] [id number]</content>
<content>Glass Frame Fitter: Omar Romo MD, Phone: [phone]</content>
<content></content> ID Date Data Source [id number] 08/12/2021 11:30:00 AM EDT [facility] ([facility]) Name Value Range Interpretation Code Description Data Anastasia rce(s) Supporting Document(s) Gastrointestinal (GI) Panel Laboratory test result [facility] ([facility]) This Gastrointestinal PCR Panel detects the following bacteria, parasites and viruses: [...] infection. NEGATIVE by MULTIPLEXED NUCLEIC ACID PCR Procedure Social History No Information Vital Signs ID Date Data Source UNK Name Value Range Interpretation Code Description Data Source(s) Systolic blood pressure 104 mm[Hg] 104 mm[Hg] [facility] Diastolic blood pressure 62 mm[Hg] 62 mm[Hg] [facility] ([facility]) Body height 65 [in_i] 65 [in_i] [facility] ([facility]) 5'5" Body weight 125.00 [lb_av] 125.00 [lb_av] [facility] ([facility]) Body mass index (BMI) [Ratio] 20.8 kg/m2 20.8 k g/m2 [facility] ([facility]) Kimball body weight 125 [lb_av] 125 [lb_av] [facility] ([facility]) Body weight 56.700 kg 56.700 kg [facility] ([facility]) Body surface area Derived from formula 1.62 m2 1.62 m2 [facility] ([facility]) Body height 65 [in_i] 65 [in_i] [facility] ([facility]) 5'5" Body surface area Derived from formula 1.60 m2 1.60 m2 [facility] ([facility]) Systolic blood pressure 112 mm[Hg] 112 mm[Hg] [facility] Diastolic blood pressure 78 mm[Hg] 78 mm[Hg] [facility] ([facility]) Body weight 122.00 [lb_av] 122.00 [lb_av] [facility] ([facility]) Body mass index (BMI) [Ratio] 20.3 kg/m2 20.3 k g/m2 [facility] ([facility]) Kimball body weight 125 [lb_av] 125 [lb_av] [facility] ([facility]) Body weight 55.339 kg 55.339 kg [facility] ([facility])
[2021-10-14] MEDS ORDERED: AMOX500C PO (00:02)
[2021-10-14] MEDS ORDERED: BOOSTRIX/ADACEL VACCINE (DIPHTH/PERTUSS/ACELL/TETANUS) 0.5ML SYR IM ONE (07:50)
--- OUTSIDE RECORDS SUMMARY | 2021-10-14 07:58 | CCD ---
Author Author [facility] Organization [facility] Address Unknown Phone Unavailable Care Team Providers Care Sheepskin Pickler Name Role Phone Charlebois, A Cyndee RPA C Unavailable Unavailable Charlebois, A Cydnee RPA C Unavailable Unavailable Charlebois, A Cyndee [...] is protected by Article 27-F of the [facility] Public Health law. If you continue you may have access to information: Regarding HIV / AIDS; Provided by facilities licensed or operated by the [facility] Office of Mental Health; or Provided by the [facility] Office for People With Developmental Disabilities. If such information is present, then the following [facility] mandated warning applies: This information has been [...] law may result in a fine or skilled nursing sentence or both. A general authorization for the release of medical or other information is NOT sufficient authorization for further disc losure. Encounters Encounter Providers Location Date Indications Data Source(s ) Outpatient Attender: Terrence Manning PA-C 08/26/2021 03:49:38 PM EDT - 08/26/2021 05:27:03 PM EDT Mariella ([facility]) Outpatient Attender: Cyndee Wells/Mirta/Jesus pringle/Huang 07/13/2021 02:00:00 PM EDT TANNA ([facility] ) Immunizations Vaccine Date Status Description Data Source(s) COVID-19 VACCINE Moderna 04/12/2021 12:00:00 AM EDT completed [facility] Vaccine Series Complete: YESThis Data wa s Submitted to [facility] Via [facility]. COVID-19 VACCINE Moderna 03/15/2021 12:00:00 AM EDT completed [facility] Vaccine Series Complete: NOThis Data was Submitted to [facility] Via [employer]. Medications Medication Brand Name Start Date Product Form Dose Route Admi nistrative Instructions Pharmacy Instructions Status Indications Reaction Description Data Source(s) Suprep Bowel Prep Kit Suprep Bowel Prep Kit 08/01/2021 12:00:00 AM EDT completed [facility] ([facility], ) Bisacodyl 5 MG Delayed Release Oral Tablet [Dulcolax] Dulcol ax 08/01/2021 12:00:00 AM EDT ORAL completed [facility] ([facility], ) Insurance Providers Payer name Policy type / Coverage type Policy ID Covered democrat ID Covered democrat's relationship to braden Policy Braden Plan Information [facility] [id number] [facility] [id number] [employer]/ [id number] [facility] [id number] [facility] [id number] [facility] [id number] Problems, Conditions, and Diagnoses No Information Surgeries/Procedures Procedure Description Date Indications Data Source(s) OFFICE OUTPATIENT NEW 45 MINUTES 07/13/2021 12:00:00 A M EDT [facility] ([facility], ) Results ID Date Data Source [id number] 09/16/2021 01:53:00 PM EDT [facility] ([facility], ) Name Value Range Interpretation Code Description Data Anastasia rce(s) Supporting Document(s) Surgical pathology study Laboratory test result [facility] ([facility], ) <content>FINAL DIAGNOSIS</content>
< content></content>
<content>A - [...] MD 09/21/2021801</content>
<content></content> ID Date Data Source [id number] 09/09/2021 11:15:00 AM EDT TANNA ([facility], ) Name Value Range Interpretation Code Description Data Anastasia rce(s) Supporting Document(s) Thyroid Stimulating Hormone 1.740 uIU/ML 0.358-3.740 Norm al (applies to non- numeric results) [facility] ([facility]) Free T4 1.49 ng/dL 0.76-1.46 Above high normal [facility] ([facility]) ID Date Data Source [id number] 09/09/2021 11:15:00 AM EDT [facility] ([facility]) Name Value Range Interpretation Code Description Data Anastasia rce(s) Supporting Document(s) Tissue transglutaminase IgA Ab [Units/volume] in Serum Labor atory test result 0-3 Normal (applies to non-numeric results) [facility] ([facility]) Negative 0 - 3 Weak Positive 4 - 10 Positive >10 . Tissue Transglutaminase (tTG) has been identified as the endomysial antigen. Studies have demonstr- ated that endomysial IgA antibodies have over 99% specificity for gluten sensitive enteropathy. Performed at: RN - [facility] [address] [id number] Powerhouse Attendant: Vilma León MD, Phone: [phone] IgA [Mass/volume] in Serum or Plasma 134.0 mg/dL 70-400 Normal (applies to non- numeric results) [facility] ([facility]) ID Date Data Source [id number] 09/09/2021 11:15:00 AM EDT [facility]) Name Value Range Interpretation Code Description Data Anastasia rce(s) Supporting Document(s) Glucose, Fasting 86 mg/dL 70-100 Normal (applies to non-numeric results) [facility] ([facility]) Blood Urea Nitrogen 17 mg/dL 7-18 Normal (applies to non-nume paulina results) [facility] ([facility]) Glomerular Filtration Rate Laboratory test result Normal (applies to non- numeric results) [facility]) <content>Units are mL/min/1.73 m2</content>
<content></content>
<content>Chronic Kidney Disease Staging per NKF:</content>
<content></content>
<content>Stage I & II GFR >=60 Normal to Mildly Decreased</content>
<content>Stage III GFR 30- 59 Moderately Decreased</content>
<content>Stage IV GFR 15-29 Severely Decreased</content>
<content>Stage V GFR <15 Very Little GFR Left</content>
<content>ESRD GFR <15 on PUMPING [employer] OPERATOR</content>
<content></content> Creatinine For GFR 0.87 mg/dL 0.55-1.30 Normal (applies to non -numeric results) [facility] ([facility], ) Sodium Level 137 meq/L 136-145 Normal (applies to non-numeric res ults) [facility], ) Potassium Serum 3.9 meq/L 3.5-5.1 Normal (applies to non-numeric results) [facility] ([facility], ) Chloride Level 104 meq/L 98-107 Normal (applies to non-numeric r esults) [facility] ([facility], ) Carbon Dioxide Level 25 meq/L 21-32 Normal (applies to non-num suleman results) [facility] ([facility], ) Anion Gap 8 meq/L 8-16 Normal (applies to non-numeric resul ts) [facility], ) Calcium Level 10.0 mg/dL 8.5-10.1 Normal (applies to non-numeric re sults) [facility], ) Ast/Sgot 15 U/L 7-37 Normal (applies to non-numeric resul ts) [facility] ([facility], ) Alt/SGPT 20 U/L 12-78 Normal (applies to non-numeric resul ts) [facility], ) Alkaline Phosphatase 51 U/L 45-117 Normal (applies to non-num suleman results) [facility], ) Bilirubin,Total 0.9 mg/dL 0.2-1.0 Normal (applies to non-numeric results) [facility], ) Total Protein 7.6 GM/DL 6.4-8.2 Normal (applies to non-numeric re sults) [facility]) Albumin 4.5 GM/DL 3.2-5.2 Normal (applies to non-numeric resul ts) [facility]) Albumin/Globulin Ratio 1.5 1.2-2.2 Normal (applies to non-n umeric results) [facility]) ID Date Data Source [id number] 09/09/2021 11:15:00 AM EDT [facility] ([facility]) Name Value Range Interpretation Code Description Data Anastasia rce(s) Supporting Document(s) White Blood Count 6.5 10 4.0-10.0 Normal (applies to non-numeri c results) [facility]) Red Blood Count 4.34 10 4.00-5.40 Normal (applies to non-numeric results) [facility] ([facility]) Hemoglobin 12.8 g/dL 12.0-15.5 Normal (applies to non-numeric resul ts) [facility]) Hematocrit 38.7 % 36.0-47.0 Normal (applies to non-numeric resul ts) [facility]) Mean Corpuscular Volume 89.2 fl 80.0-96.0 Normal ( applies to non-numeric results) [facility]) Mean Corpuscular Hemoglobin 29.5 pg 27.0-33.0 Norm al (applies to non-numeric results) [facility]) Red Cell Distribution Width 12.7 % 11.5-14.5 Norm al (applies to non-numeric results) [facility]) Mean Corpuscular HGB Conc 33.1 g/dL 32.0-36.5 Normal (applies to non-numeric results) [facility]) Platelet Count, Automated 232 10 150-450 Normal (applies to non-numeric results) [facility]) Neutrophils % 40.2 % 36.0-66.0 Normal (applies to non-numeric re sults) [facility]) Lymph % 49.8 % 24.0-44.0 Above high normal [facility] ([facility]) [place] % 8.1 % 2.0-8.0 Above high normal [facility] ([facility]) Eos % 1.1 % 0.0-3.0 Normal (applies to non-numeric resul ts) [facility] ([facility]) Baso % 0.6 % 0.0-1.0 Normal (applies to non-numeric resul ts) [facility] ([facility]) Immature Granulocyte % 0.2 % 0-3.0 Normal (applies to non-n umeric results) [facility] ([facility]) Nucleated Red Blood Cell % 0.0 % 0-0 Normal (applies to n on-numeric results) [facility] ([facility]) Neutrophils # 2.6 10 1.5-8.5 Normal (applies to non-numeric re sults) [facility] ([facility]) [place] # 0.5 10 0.0-0.8 Normal (applies to non-numeric resul ts) [facility] ([facility]) Lymph # 3.2 10 1.5-5.0 Normal (applies to non-numeric resul ts) [facility] ([facility]) Eos # 0.1 10 0.0-0.5 Normal (applies to non-numeric resul ts) [facility] ([facility]) Baso # 0.0 10 0.0-0.2 Normal (applies to non-numeric resul ts) [facility] ([facility]) ID Date Data Source [id number] 08/26/2021 05:30:00 PM EDT [facility] Name Value Range Interpretation Code Description Data Anastasia rce(s) Supporting Document(s) SARS-CoV-2 RNA Resp Ql CARMEN+probe NOT DETECTED [facility] This lab was ordered by AMEE wallace and reported by AMEE Fuller. ID Date Data Source [id number] 08/12/2021 11:30:00 AM EDT [facility] ([facility]) Name Value Range Interpretation Code Description Data Anastasia rce(s) Supporting Document(s) Calprotectin [Mass/mass] in Stool Laboratory test result 0-120 Normal (applies to non-numeric results) [facility] ([facility], ) <content>Concentration Interpretatio n Follow-Up</content>
<content><16 - 50 ug/g Normal None</content>
<content>>50 -120 ug/g Borderline Re-evaluate in 4-6 weeks</content>
<content>>120 ug/g Abnormal Repeat as clinically</content>
<content>indicated</content>
<content>Performed at: [facility]</content>
<content>[address] [place] [id number]</content>
<content>Powerhouse Attendant: Omar Romo MD, Phone: [phone]</content>
<content></content> ID Date Data Source [id number] 08/12/2021 11:30:00 AM EDT [facility] ([facility]) Name Value Range Interpretation Code Description Data Anastasia rce(s) Supporting Document(s) Gastrointestinal (GI) Panel Laboratory test result [facility] ([facility]) This Gastrointestinal PCR Panel detects the following [...] blood pressure 104 mm[Hg] 104 mm[Hg] [facility] ([facility]) Diastolic blood pressure 62 mm[Hg] 62 mm[Hg] [facility] ([facility]) Body height 65 [in_i] 65 [in_i] [facility] ([facility]) 5'5" Body weight 125.00 [lb_av] 125.00 [lb_av] [facility] ([facility]) Body mass index (BMI) [Ratio] 20.8 kg/m2 20.8 k g/m2 [facility] ([facility]) Terrell body weight 125 [lb_av] 125 [lb_av] [facility] ([facility]) Body weight 56.700 kg 56.700 kg [facility] ([facility]) Body surface area Derived from formula 1.62 m2 1.62 m2 [facility] ([facility]) Body height 65 [in_i] 65 [in_i] [facility] ([facility]) 5'5" Body surface area Derived from formula 1.60 m2 1.60 m2 [facility] ([facility]) Systolic blood pressure 112 mm[Hg] 112 mm[Hg] [facility] ([facility]) Diastolic blood pressure 78 mm[Hg] 78 mm[Hg] [facility] ([facility]) Body weight 122.00 [lb_av] 122.00 [lb_av] [facility] ([facility]) Body mass index (BMI) [Ratio] 20.3 kg/m2 20.3 k g/m2 [facility] ([facility]) Terrell body weight 125 [lb_av] 125 [lb_av] [facility] ([facility]) Body weight 55.339 kg 55.339 kg [facility] ([facility])
[2021-10-14] MEDS ORDERED: AUGM875T28 PO (07:59)
--- NOTE | 2021-10-14 08:13 | REP ---
INDICATION: Bitten by dog, r/o bony involvement COMPARISON: None. TECHNIQUE: AP, lateral, bilateral oblique views left hand. FINDINGS: The osseous structures and joint spaces are intact and normal. There is no evidence for acute fracture or dislocation. Surrounding soft tissues are unremarkable. No subcutaneous emphysema or radiodense foreign body. IMPRESSION: . No acute fracture or dislocation. <Electronically signed by Reno Lucero > 10/14/21 0537
[2021-10-14 09:35] VITALS: BP 125/62
== END 2021-10-14 09:40 | disposition home or self-care (01) ==
LOC: M ED 23:44
DX: S60.572A Other superficial bite of hand of left hand, initial encounter (principal); W54.0XXA Bitten by dog, initial encounter; Y92.018 Other place in single-family (private) house as the place of occurrence of the external cause; Z79.3 Long term (current) use of hormonal contraceptives

== ENCOUNTER 2022-03-01 07:13 | Day surgery (SDC) | payer OTHER ==
[~2022-03-01] VITALS: Ht 165.1 cm; Wt 55.8 kg
[~2022-03-01 07:13] MED LIST changes: +AMOX500C PO; +AUGM875T28 PO; +EMLA CREAM 5GM TUBE (LIDOCAINE/PRILOCAINE) TOP PRN; +LIDOCAINE 1% MDV 20ML VIAL SQ PRN; +LR 1,000 ML IV ONE
[2022-03-01 07:43] LABS: HEMOGLOBIN 12.6 g/dl (12.0-15.5); MEAN CORPUSCULAR HEMOGLOBIN 29.9 pg (27.0-33.0); MEAN CORPUSCULAR HGB CONC 34.1 g/dl (32.0-36.5); MEAN CORPUSCULAR VOLUME 87.7 fl (80.0-96.0); PLATELET COUNT, AUTOMATED 243 10^3/uL (150-450); RED BLOOD COUNT 4.22 10^6/uL (4.00-5.40); WHITE BLOOD COUNT 5.1 10^3/uL (4.0-10.0)
[2022-03-01] MEDS ORDERED: ONDANSETRON 4MG/2ML VIAL As Ordered ONE (07:46)
[2022-03-01] MEDS ORDERED: dexameTHASONE 4 MG/ML 1ML VIAL (J1100 PER 1MG) As Ordered ONE (07:46)
[2022-03-01] MEDS ORDERED: fentaNYL 100 MCG/2 ML INJECTION As Ordered ONE ×2 (07:46→09:34)
[2022-03-01] MEDS ORDERED: LIDOCAINE 2% 100MG/5ML SDV (FOR ANES.) As Ordered ONE (07:46)
[2022-03-01] MEDS ORDERED: propofoL 200 MG/20 ML VIAL As Ordered ONE (07:46)
[2022-03-01] MEDS ORDERED: KETOROLAC 60MG 2ML VIAL As Ordered ONE (07:46)
[2022-03-01] MEDS ORDERED: MIDAZOLAM INJ 2MG/2ML VIAL (J2250 PER 1MG) As Ordered ONE (07:46)
[2022-03-01] MEDS ORDERED: LIDOCAINE W/EPINEPHRINE 1% 20ML VIAL As Ordered ONE (08:26)
[2022-03-01] MEDS ORDERED: IODINE STRONG SOLN 15 ML BTL As Ordered ONE (08:26)
[2022-03-01] MEDS ORDERED: ACETAMINOPHEN 1000MG 100ML IV BTL (OFIRMEV) (J0131 PER 10MG) As Ordered ONE (08:50)
[2022-03-01] MEDS ORDERED: ONDANSETRON 4MG/2ML VIAL IV PRN (10:00)
[2022-03-01] MEDS ORDERED: LR 1,000 ML IV SCH (10:00)
[2022-03-01] MEDS ORDERED: PERCOCET 5MG/325MG TAB PO PRN (10:00)
[2022-03-01] MEDS ORDERED: fentaNYL 100 MCG/2 ML INJECTION IV PRN (10:00)
[2022-03-01 11:10] VITALS: BP 115/70
== END 2022-03-01 11:14 | disposition home or self-care (01) ==
LOC: M SDC 07:13
PROVIDERS: ATTEND Obstetrics & Gynecology
DX: N87.1 Moderate cervical dysplasia (principal)
CPT/HCPCS: 36415; 57522; 81025; 85027; 88305; 88307; J0131; J1100; J1885; J2250; J2405; J3010

== ENCOUNTER 2023-04-26 08:47 | Emergency (ER) | payer OTHER ==
[~2023-04-26] VITALS: Ht 165.1 cm; Wt 61.8 kg
[~2023-04-26 08:47] MED LIST changes: -EMLA CREAM 5GM TUBE (LIDOCAINE/PRILOCAINE) TOP PRN; +ETON68IM SC; -LIDOCAINE 1% MDV 20ML VIAL SQ PRN; -LR 1,000 ML IV ONE; -NEXP1IMP SC
[2023-04-26] MEDS ORDERED: ETON68IM SC (09:10)
[2023-04-26 09:30] LABS: BASO # 0.1 10^3/uL (0.0-0.2); BASO % 0.6 % (0.0-1.0); EOS # 0.1 10^3/uL (0.0-0.5); EOS % 1.2 % (0.0-3.0); HEMATOCRIT 36.7 % (36.0-47.0); HEMOGLOBIN 12.1 g/dl (12.0-15.5); LYMPH # 2.5 10^3/uL (1.5-5.0); LYMPH % 32.5 % (24.0-44.0); MEAN CORPUSCULAR HEMOGLOBIN 29.9 pg (27.0-33.0); MEAN CORPUSCULAR VOLUME 90.6 fl (80.0-96.0); MONO # 0.5 10^3/uL (0.0-0.8); MONO % 6.3 % (2.0-8.0); NEUTROPHILS # 4.6 10^3/uL (1.5-8.5); NEUTROPHILS % 59.1 % (36.0-66.0); PLATELET COUNT, AUTOMATED 248 10^3/uL (150-450); RED BLOOD COUNT 4.05 10^6/uL (4.00-5.40); WHITE BLOOD COUNT 7.8 10^3/uL (4.0-10.0)
[2023-04-26 09:57] LABS: LIPASE 25 U/L (12-53)
[2023-04-26 09:59] LABS: ALBUMIN 4.2 G/DL (3.2-5.2); ALKALINE PHOSPHATASE 47 U/L (46-116); ALT/SGPT 17 U/L (7.0-40); AST/SGOT 14 U/L (<34); BILIRUBIN,DIRECT 0.2 MG/DL (<0.4); BILIRUBIN,TOTAL 0.6 MG/DL (0.3-1.2); BLOOD UREA NITROGEN 7 MG/DL (9-23); CALCIUM LEVEL 9.1 MG/DL (8.5-10.1); CARBON DIOXIDE LEVEL 28 MMOL/L (20-31); CHLORIDE LEVEL 106 MMOL/L (98-107); CREATININE FOR GFR 0.75 MG/DL (0.55-1.30); GLOMERULAR FILTRATION RATE > 60.0 (>60); GLUCOSE, FASTING 91 MG/DL (60-100); POTASSIUM SERUM 4.2 MMOL/L (3.5-5.1); SODIUM LEVEL 139 MMOL/L (136-145); TOTAL PROTEIN 6.9 G/DL (5.7-8.2)
[2023-04-26 10:14] LABS: HCG, SERUM QUALITATIVE NEGATIVE (NEGATIVE)
[2023-04-26] MEDS ORDERED: ONDANSETRON 4MG 2ML VIAL IV ONE (12:10)
[2023-04-26] MEDS ORDERED: PANTOPRAZOLE 40MG VIAL IV ONE (12:10)
[2023-04-26] MEDS ORDERED: NS 1,000 ML IV ONE (12:10)
[2023-04-26] MEDS ORDERED: KETOROLAC 30 MG/ML 1ML VIAL IV ONE (12:10)
[2023-04-26] MEDS ORDERED: ISOVUE-370 76% 100ML VIAL As Ordered ONE (12:14)
[2023-04-26 12:31] VITALS: BP 119/67; TEMP 98.7; O2SAT 100
[2023-04-26] MEDS ORDERED: HYOSCYAMINE SULFATE 0.125 MG SUBL TABLET PO ONE (13:45)
[2023-04-26] MEDS ORDERED: MAALOX 30 ML SUSP *UDC PO ONE (13:45)
[2023-04-26] MEDS ORDERED: OMEP40CA4 PO (14:05)
[2023-04-26] MEDS ORDERED: ONDA4TAB6 PO (14:06)
== END 2023-04-26 14:12 | disposition home or self-care (01) ==
LOC: M ED 08:47
DX: K21.9 Gastro-esophageal reflux disease without esophagitis (principal); F17.200 Nicotine dependence, unspecified, uncomplicated; Z79.3 Long term (current) use of hormonal contraceptives
CPT/HCPCS: 74177; 80048; 80076; 81001; 83690; 84703; 85025; 96374; 96375; 99284; C9113; J1885; J2405; Q9967